=== PATIENT | female | born 1985 | race Caucasian/White ===

== ENCOUNTER 2017-02-06 18:19 | Emergency (ER) | payer SELFPAY ==
[2017-02-06 19:53] LABS: CALCIUM 7.8 mg/dL (8.5-10.1); CARBON DIOXIDE 22.6 mmol/L (21-32); CHLORIDE SERUM 109 mmol/L (98-107); CREATININE SERUM 0.7 mg/dL (0.6-1.0); GFR1 > 60 mL/min; GLUCOSE SERUM 100 mg/dL (74-106); POTASSIUM SERUM 3.2 mmol/L (3.5-5.1); SODIUM SERUM 143 mmol/L (136-145)
[2017-02-06 20:02] LABS: BASOPHIL % 0.7 % (0-2); PLATELET COUNT 230 x10^3mcL (130-400)
[2017-02-06 20:20] LABS: ALBUMIN 3.5 g/dL (3.4-5.0); ALKALINE PHOSPHATASE 48 U/L (46-116); ALT/SGPT 30 U/L (14-59); AST/SGOT 23 U/L (15-37); BILIRUBIN TOTAL 0.15 mg/dL (0.20-1.00); LIPASE 197 IU/L (73-393); TOTAL PROTEIN, SERUM 6.1 g/dL (6.4-8.2)
[2017-02-06 21:56] LABS: UA SPECIFIC GRAVITY 1.025 (1.005-1.035); microscopic required? YES; urine erythrocyte NEGATIVE (NEGATIVE)
[2017-02-06 22:13] LABS: AMPHETAMINE QUAL UR POSITIVE (NEG <=1000)
[2017-02-07 01:22] VITALS: BP 105/63
== END 2017-02-07 01:22 | disposition home or self-care (01) ==
LOC: ED 18:19
PROVIDERS: Emergency Medicine
DX: F10.129 Alcohol abuse with intoxication, unspecified (principal); F19.10 Other psychoactive substance abuse, uncomplicated; N39.0 Urinary tract infection, site not specified
CPT/HCPCS: 82962; G0480; J0696; J7030

== ENCOUNTER 2017-03-03 13:57 | Emergency (ER) | payer SELFPAY ==
[~2017-03-03] VITALS: Ht 162.6 cm; Wt 54.4 kg
[2017-03-03 14:21] VITALS: BP 108/69
== END 2017-03-03 14:30 | disposition left against medical advice (07) ==
LOC: ED 13:57
DX: G93.41 Metabolic encephalopathy (principal); R00.0 Tachycardia, unspecified